=== PATIENT | male | born 1985 | race Hispanic/Latino ===

== ENCOUNTER 2019-07-02 00:48 | Emergency (ER) | payer OTHER ==
[2019-07-02] MEDS ORDERED: ACETAMINOPHEN EXTRA STRENGTH 500 MG TABLET ONE (01:05)
[2019-07-02] MEDS ORDERED: SILVER SULFADIAZINE CREAM 50 GM TP ONE (01:06)
== END 2019-07-02 01:16 | disposition home or self-care (01) ==
LOC: EDH 00:48
DX: T20.20XA Burn of second degree of head, face, and neck, unspecified site, initial encounter (principal); T31.22 Burns involving 20-29% of body surface with 20-29% third degree burns; X16.XXXA Contact with hot heating appliances, radiators and pipes, initial encounter; Y93.89 Activity, other specified; Y92.098 Other place in other non-institutional residence as the place of occurrence of the external cause; Y99.8 Other external cause status